=== PATIENT | male | born 1950 | race Caucasian/White ===

== ENCOUNTER 2016-12-11 11:29 | Emergency (ER) | payer OTHER ==
[2016-12-11 11:57] VITALS: TEMP 97.7; BMI 24.0
[2016-12-11 12:18] LABS: MPV 9.3 fL (7.4-10.4)
[2016-12-11 12:30] LABS: BLOOD UREA NITROGEN 27 MG/DL (9-20); CALCIUM 9.7 MG/DL (8.4-10.2); CALCULATED OSMOLALITY 269 MOs/Kg (270-290); CHLORIDE 100 mEq/L (98-107); GLUCOSE 106 MG/DL (70-99); SODIUM LEVEL 137 mEq/L (137-146)
[2016-12-11 12:47] LABS: SEG NEUTROPHIL 83 % (45-76)
[2016-12-11] MEDS ORDERED: NS 1,000 ML IV ONE (13:25)
[2016-12-11] MEDS ORDERED: ONDANSETRON HCL 4 MG/2 ML VIAL IV ONE (13:26)
[2016-12-11] MEDS ORDERED: Albuterol/Ipratropium Neb 3 ML NEB NEB ONE (13:26)
[2016-12-11] MEDS ORDERED: METHYLPREDNISOLONE 125 MG/2 ML VIAL IV ONE (13:26)
[2016-12-11] MEDS ORDERED: MORPHINE 4 MG/ML INJECTION IV ONE (13:26)
--- NOTE | 2016-12-11 13:32 | DIRPT ---
CLINICAL DATA: Cough and shortness of breath for 5 days EXAM: CHEST - 2 VIEW COMPARISON: 12/09/2016 FINDINGS: The heart size and mediastinal contours are within normal limits. Both lungs are clear. The visualized skeletal structures are unremarkable. IMPRESSION: No active disease. Electronically Signed By: Chandana Lorenz M.D. On: 12/11/2016 13:29
--- NOTE | 2016-12-11 13:43 | EDPRACDOC ---
- General Information Chief Complaint: Flu-Like Symptoms Stated Complaint: RESP. PROBLEMS Time Seen by Provider: 12/11/16 13:18 Information Source: Patient Mode Of Arrival: Ambulance Home Medications: Home Medications Albuterol Sulfate MDI [Proventil HFA] 2 puff INH QID #1 inhaler 12/11/16 Albuterol Sulfate [Proventil, Ventolin] 2.5 mg NEB Q4-6H PRN 12/11/16 Benzonatate [Tessalon] 200 mg PO TID #20 per 12/11/16 Guaifenesin/Codeine Phosphate [Cheratussin AC Syrup] 5 ml PO Q4-6H #200 liquid 12/11/16 Levaquin Unknown Dose 0 mg PO .DAILY SEE COMMENTS 12/11/16 Methylprednisolone [Medrol] 4 mg PO . DIR 12/11/16 Nebulizer [Erapid Nebulizer] 1 each MC .UNKNOWN 12/11/16 Pantoprazole Sodium [Protonix] 40 mg PO DAILY 12/11/16 Allergies/Adverse Reactions: Allergies Allergy/AdvReac Type Severity Reaction Status Date / Time prednisone Allergy Hives* Verified 12/11/16 13:45 - History of Present Illness Onset: LAST WEEK HPI: PT PRESENTS WITH PRODUCTIVE COUGH AND SHOB. STATES HE IS COUGHING UP GREEN SPUTUM. STATES HE WENT TO HIS PCP LAST WEEK AND WAS GIVEN STEROIDS AND LEVAQUIN , WENT BACK YESTERDAY AND HAD A CHEST X-RAY WHEN CAME BACK NEGATIVE. PT CONTINUES TO COUGH FORCEFULLY. Shortness of Breath: Moderate Relevant History: Reports: None Cough: Reports: Productive, Green Rhinorrhea: Reports: Clear Ear Symptoms: Reports: None SOB Worsens with: Reports: Exertion, Movement, Coughing, Lying Flat, Position SOB Improves with: Reports: Sitting up, Rest, Position Recently treated infections:: Reports: URI - Treatment Prior to ED Arrival Reported Medications/Treatment [facility] Treatment BLS IV No ED Past Medical History - History Reviewed Yes Nurses notes reviewed and agree except as marked - Patient Medical History Respiratory History: Reports: COPD GI/ History: Reports: Gastroesophageal Reflux Systemic History: Denies: Cancer Surgical History: Reports: Tonsillectomy/Adnoidectomy EDM Review of Systems - Review of Systems ROS Negative Except as Marked: Yes All systems reviewed and were negative except as marked - Physical Exam Constitutional: Alert Oriented to: Time, Person, Place Last recorded Vital Signs: Last Vital Signs Temp 97.7 F 12/11/16 11:50 Pulse 95 12/11/16 11:50 Resp 22 12/11/16 11:50 BP 126/77 12/11/16 11:50 Pulse Ox 98 12/11/16 11:50 Oxygen Pulse Oxygen Saturation 98 O2 Device Room Air Oxygen Flow Rate Fraction of Inspired Oxygen ( FIO2) - HEENT Head: Normal ( normocephalic) Eye Exam: Normal (PERRL, EOMI, Sclera white) Oropharynx: Membranes Dry, Red Nose: No Symptoms Reported (septum midline) Neck: Normal (FROM, trachea at midline) - Respiratory/Cardiovascular Respiratory: Stridor, Tachypnea, Wheezes Cardiovascular: Normal (RRR without murmur, gallop or rub) - GI Auscultation: Normal (NABS) Palpation: Normal (Soft,No rebound or guarding, non distended) Tenderness: Non tender Diane's Sign: Negative Rectal Exam: Deferred - Musculoskeletal Back: Normal (Non-Tender) Extremities: Normal (Normal tone, Pulses 2+ No cyanosis or edema, FROM) - Integumentary Skin: Normal, Warm, Dry Lymphatics: Normal (no adenopathy) - Neurologic Memory Impaired: Normal Motor Function: Normal (Normal tone, Pulses 2+ No cyanosis or edema, FROM) Cranial Nerve: Normal (CN II-X11 intact sensation, strength 5/5) Cerebellar: Normal Mood Description: Normal Perception: Normal ED SOB MDM - Differential Diagnosis Differential Diagnosis: Bronchiolitis, Pnuemonia, Other - Results Result Diagrams: 12/11/16 12:05 12/11/16 12:05 Results: WBC 15.4 xk/uL (3.8-10.8) H 12/11/16 12:05 RBC 6.98 xM/uL (4.70-6.10) H 12/11/16 12:05 Hgb 15.6 g/dL (14.0-18.0) 12/11/16 12:05 Hct 50.1 % (42-52) 12/11/16 12:05 MCV 72 fL (80-94) L 12/11/16 12:05 MCH 22.4 pg (27-32) L 12/11/16 12:05 MCHC 31.2 g/dl (33-36) L 12/11/16 12:05 RDW 19.9 % (11.5-14.5) H 12/11/16 12:05 Plt Count 223 xk/uL (130-400) 12/11/16 12:05 MPV 9.3 fL (7.4-10.4) 12/11/16 12:05 Neut % (Auto) Cancelled 12/11/16 12:05 Lymph % (Auto) Cancelled 12/11/16 12:05 Russell % (Auto) Cancelled 12/11/16 12:05 Eos % (Auto) Cancelled 12/11/16 12:05 Baso % (Auto) Cancelled 12/11/16 12:05 Absolute Neuts (auto) Cancelled 12/11/16 12:05 Absolute Lymphs (auto) Cancelled 12/11/16 12:05 Seg Neuts % (Manual) 83 % (45-76) H 12/11/16 12:05 Band Neutrophils % 0 % (0-5) 12/11/16 12:05 Lymphocytes % (Manual) 11 % (17-44) L 12/11/16 12:05 Monocytes % (Manual) 6 % (0-10) 12/11/16 12:05 Absolute Neutrophils 12.78 xk/uL (1.7-8.2) H 12/11/16 12:05 Absolute Lymphocytes 1.69 xk/uL (0.65-4.75) 12/11/16 12:05 Platelet Estimate Norm (NORMAL) 12/11/16 12:05 RBC Morphology 1+ aniso 1+ hypo 1+ micro 12/11/16 12:05 RBC Morphology 1+ aniso 1+ hypo 1+ micro 12/11/16 12:05 RBC Morphology 1+ aniso 1+ hypo 1+ micro 12/11/16 12:05 Sodium 137 mEq/L (137-146) 12/11/16 12:05 Potassium 3.9 mEq/L (3.5-5.1) 12/11/16 12:05 Chloride 100 mEq/L (98-107) 12/11/16 12:05 Carbon Dioxide 21 mMOL/L (22-33) L 12/11/16 12:05 Anion Gap 20 mEq/L (8-16) H 12/11/16 12:05 BUN 27 MG/DL (9-20) H 12/11/16 12:05 Creatinine 1.20 MG/DL (0.66-1.25) 12/11/16 12:05 Estimated GFR (MDRD) > 60 mL/min (>=60) 12/11/16 12:05 Glucose 106 MG/DL (70-99) H 12/11/16 12:05 Calculated Osmolality 269 MOs/Kg (270-290) L 12/11/16 12:05 Calcium 9.7 MG/DL (8.4-10.2) 12/11/16 12:05 Total Bilirubin 0.7 MG/DL (0.2-1.3) 12/11/16 12:05 AST 52 IU/L (17-59) 12/11/16 12:05 ALT 66 IU/L (21-72) 12/11/16 12:05 Alkaline Phosphatase 79 IU/L (50-160) 12/11/16 12:05 Troponin I < 0.01 ng/mL (<.04) 12/11/16 12:05 Ehn-H-Tibnplaqgar Pept 298 pg/mL (0-900) 12/11/16 12:05 Total Protein 7.0 G/DL (6.3-8.2) 12/11/16 12:05 Albumin 4.4 G/DL (3.5-5.0) 12/11/16 12:05 Lab Results 12/11/16 12/11/16 12:05 12:05 WBC 15.4 H RBC 6.98 H Hgb 15.6 Hct 50.1 MCV 72 L MCH 22.4 L MCHC 31.2 L RDW 19.9 H Plt Count 223 MPV 9.3 Neut % (Auto) Cancelled Lymph % (Auto) Cancelled Russell % (Auto) Cancelled Eos % (Auto) Cancelled Baso % (Auto) Cancelled Absolute Neuts (auto) Cancelled Absolute Lymphs (auto) Cancelled Seg Neuts % (Manual) 83 H Band Neutrophils % 0 Lymphocytes % (Manual) 11 L Monocytes % (Manual) 6 Absolute Neutrophils 12.78 H Absolute Lymphocytes 1.69 Platelet Estimate Norm RBC Morphology 1+ micro Sodium 137 Potassium 3.9 Chloride 100 Carbon Dioxide 21 L Anion Gap 20 H BUN 27 H Creatinine 1.20 Estimated GFR (MDRD) > 60 Glucose 106 H Calculated Osmolality 269 L Calcium 9.7 Total Bilirubin 0.7 AST 52 ALT 66 Alkaline Phosphatase 79 Troponin I < 0.01 Dhi-H-Pvoshimtmqh Pept 298 Total Protein 7.0 Albumin 4.4 Decision Time to Discharge: 15:23 - Departure Disposition: Home Condition: Stable Final Diagnosis: Acute bronchitis Instructions: Acute Bronchitis (ED) Education/Counseling Given To: Patient Education/Counseling Given Regarding: Diagnosis, Treatment, Prognosis, Follow Up Referrals: Radha Robles MD [Primary Care Provider] - One Week Prescriptions: Albuterol Sulfate MDI [Proventil HFA] 2 puff INH QID #1 inhaler Benzonatate [Tessalon] 200 mg PO TID #20 per Guaifenesin/Codeine Phosphate [Cheratussin AC Syrup] 5 ml PO Q4-6H #200 liquid Additional Instructions: CONTINUE TAKING MEDICATIONS FROM YOUR PCP. FOLLOW UP WITH THEM NEXT WEEK. RETURN TO THE ED FOR WORSENING SYMPTOMS OR CONCERNS
[2016-12-11 13:59] LABS: ALLEN'S TEST PASS; BEb 2.1 (+/- 2); TCO2 23.2 MMOL/L (23-27)
[2016-12-11 14:00] LABS: ABG Draw Site Right Radial
[2016-12-11] MEDS ORDERED: Pharmacy Review for Metformin - IV Contrast Given SCH (14:00)
[2016-12-11] MEDS ORDERED: TUSSIONEX 5 ML ORAL SYRINGE PO ONE (14:27)
[2016-12-11 15:11] LABS: LEUKOCYTES/URINE NEG (NEGATIVE); NITRITE/URINE NEG (NEGATIVE); URINE OCCULT BLOOD NEG (NEG/TRACE); WBC/URINE 0-2 (0-2)
--- NOTE | 2016-12-11 15:22 | DIRPT ---
CLINICAL DATA: Shortness of breath and cough for 5 days EXAM: CT ANGIOGRAPHY CHEST WITH CONTRAST TECHNIQUE: Multidetector CT imaging of the chest was performed using the standard protocol during bolus administration of intravenous contrast. Multiplanar CT image reconstructions and MIPs were obtained to evaluate the vascular anatomy. CONTRAST: 100 mL Isovue 370. COMPARISON: None. FINDINGS: Lungs are well aerated bilaterally. No focal infiltrate or sizable parenchymal nodule is noted. No effusions are seen. The thoracic inlet is within normal limits. The thoracic aorta demonstrates a normal branching pattern. No aneurysmal dilatation or dissection is seen. The pulmonary artery demonstrates a normal branching pattern without intraluminal filling defect to suggest pulmonary embolism. No significant hilar or mediastinal adenopathy is noted. The visualized upper abdomen shows a cystic lesion within the left lobe of the liver stable in appearance from the prior exam. No other focal abdominal abnormality is noted. The osseous structures show no acute abnormality. Review of the MIP images confirms the above findings. IMPRESSION: No evidence of pulmonary emboli. Stable changes in the upper abdomen. No acute abnormality is seen. Electronically Signed By: Chandana Lorenz M.D. On: 12/11/2016 15:19
[2016-12-11] MEDS ORDERED: ALBUTEROL 6.7 GM MDI INH ONE (15:26)
[2016-12-11 15:28] LABS: PARTIAL THROMB. TIME 21.4 SEC (22-35); PT-INR 1.1
[2016-12-11 16:05] VITALS: BP 148/84; PULSE 75
== END 2016-12-11 16:05 | disposition home or self-care (01) ==
LOC: ED 11:29
DX: J20.9 Acute bronchitis, unspecified (principal)
CPT/HCPCS: 36415; 36600; 71020; 71275; 80053; 81001; 82803; 83880; 84484; 85007; 85027; 85610; 85730; 87804; 93005; 94640; 96361; 96374; 96375; 99284; A9270; A9698; J2270; J2405; J2930; J7620; J3490